=== PATIENT | female | born 1985 | race Hispanic/Latino ===

== ENCOUNTER 2019-02-26 09:36 | Emergency (ER) | payer OTHER ==
[2019-02-26] MEDS ORDERED: NEOMYCIN/POLYMYXIN/HC OTIC SUSP 10ML BOTTLE ONE (09:47)
== END 2019-02-26 10:22 | disposition home or self-care (01) ==
LOC: EDH 09:36
DX: H60.92 Unspecified otitis externa, left ear (principal); Z88.6 Allergy status to analgesic agent; Z79.899 Other long term (current) drug therapy
CPT/HCPCS: 99282

== ENCOUNTER → 2023-09-11 | Outpatient (CLI) | payer OTHER | END | disposition home or self-care (01) | LOC: RAH 13:33 | PROVIDERS: ATTEND Family Medicine | DX: R05.9 Cough, unspecified (principal) | CPT/HCPCS: 71046 ==

== ENCOUNTER → 2025-09-14 | Outpatient (CLI) | payer OTHER ==
[~2025-09-14] MED LIST: IOHEXOL-350 75 ML VIAL IV ONE
--- NOTE | 2025-09-14 14:33 | HMCIMG ---
EXAM: COMPUTED TOMOGRAPHY OF THE ABDOMEN WITH AND WITHOUT CONTRAST Technique: Multislice computed tomography of the abdomen was performed before and after intravenous and oral contrast administration. Thin axial images were acquired from the dome of the diaphragm to the iliac crests with coronal and sagittal reformatted images. Radiation dose optimization was achieved according to ALARA (as low as reasonably achievable) principles using automatic exposure control, patient-size???based milliampere and kilovoltage adjustment, and iterative reconstruction techniques. Clinical Information: Abnormal findings on diagnostic imaging of the liver and biliary tract. Comparison: None available. Findings: Lung Bases: The visualized lung bases show no pleural effusion, consolidation, or collapse. Liver: The liver is normal in size, morphology, and attenuation with smooth margins. No focal lesions or calcifications are identified within the hepatic parenchyma. No intrahepatic or extrahepatic biliary ductal dilatation is seen. The rosette hepatis appears normal. The portal vein, hepatic veins, and inferior vena cava are of normal caliber. Gallbladder: Post-cholecystectomy status. No residual collection or abnormal soft tissue density in the gallbladder fossa. Pancreas: The pancreas is normal in size, contour, and attenuation. The pancreatic duct is not dilated. No peripancreatic fluid or fat stranding is noted. Spleen: The spleen is normal in size, shape, and attenuation. No focal splenic lesion identified. Kidneys: Both kidneys are normal in size, shape, and position with preserved corticomedullary differentiation. No renal mass, calculus, or hydronephrosis is present. No perinephric fat stranding. Gastrointestinal Tract and Peritoneal Cavity: The stomach is normally distended. The gastroesophageal junction, pylorus, and duodenum are unremarkable. The jejunal and ileal loops demonstrate normal distribution, caliber, and wall thickness. The mesentery and omentum are normal. No evidence of bowel obstruction, perforation, or acute appendicitis. The large bowel loops are well distended with no wall thickening. No free fluid or pneumoperitoneum is identified. Lymph Nodes: No pathologically enlarged lymph nodes are seen in the mesenteric, retroperitoneal, or rosette hepatis regions. Retroperitoneum: Both adrenal glands are normal in size and morphology. The abdominal aorta and inferior vena cava are normal in position and caliber. Musculoskeletal: No acute or destructive osseous lesion identified. Other: The extra-abdominal and paraspinal soft tissues appear normal. IMPRESSION: 1. No acute intraabdominal or pelvic pathology. 2. Post-cholecystectomy status without residual collection or abnormal soft tissue density in the gallbladder fossa. 3. Liver, pancreas, spleen, and kidneys are normal in size, morphology, and attenuation without focal lesions or abnormalities. 4. No evidence of bowel obstruction, perforation, or acute appendicitis. 5. No pathologically enlarged lymph nodes in the mesenteric, retroperitoneal, or rosette hepatis regions. 6. Normal appearance of abdominal vasculature, including portal vein, hepatic veins, and inferior vena cava. /Jazlyn
== END | disposition home or self-care (01) ==
LOC: RAH 11:01
PROVIDERS: ATTEND Internal Medicine Gastroenterology
DX: R93.2 Abnormal findings on diagnostic imaging of liver and biliary tract (principal); Z90.49 Acquired absence of other specified parts of digestive tract
CPT/HCPCS: 74170; Q9967